=== PATIENT | female | born 1960 | race Caucasian/White ===

== ENCOUNTER → 2025-01-19 10:55 | Outpatient (REF) | payer MEDICARE, OTHER, SELFPAY | LOC: RCS 10:55 | PROVIDERS: ATTENDING PHYSICIAN Internal Medicine Cardiovascular Disease; FAMILY PHYSICIAN Family Medicine | DX: R06.09 Other forms of dyspnea (principal); I25.110 Atherosclerotic heart disease of native coronary artery with unstable angina pectoris; I42.8 Other cardiomyopathies | CPT/HCPCS: 78452; 93017; A9500; J2785 ==